=== PATIENT | female | born 1980 | race Caucasian/White ===

== ENCOUNTER 2017-01-30 20:49 | Emergency (ER) | payer OTHER ==
[~2017-01-30] VITALS: Ht 157.5 cm; Wt 55.9 kg
[2017-01-30 20:55] VITALS: TEMP 36.6; Ht 157.5 cm; Wt 55.9 kg
[2017-01-30] MEDS ORDERED: ALBUT/IPRATROP 3MG/0.5MG NEB 3 ML VIAL INH STA (21:04)
[2017-01-30] MEDS ORDERED: DiphenhydrAMINE HCL 50 MG/ML VIAL IV STA (21:04)
[2017-01-30] MEDS ORDERED: FAMOTIDINE 20MG/102 ML D5W IV STA (21:04)
[2017-01-30] MEDS ORDERED: METHYLPREDNISOLONE 125 MG VIAL IV STA (21:04)
[2017-01-30] MEDS ORDERED: vitamin b PO (22:09)
[2017-01-30 22:56] VITALS: BP 107/68
[2017-01-30] MEDS ORDERED: PRED20TA PO (23:09)
[2017-01-30 23:14] VITALS: PULSE 85; O2SAT 97
--- NOTE | 2017-01-31 01:22 | EMERGENCY ROOM VISIT NOTE ---
History Report prepared by [place]: Katie Snowden Under the Supervision of: Dr. Alvin Brewer M.D. First contact with patient: 20:59 Chief Complaint: ALLERGIC REACTION Stated Complaint: ALLERGIC REACTION TO MUSHROOMS History of Present Illness The patient is a 37 year old female who presents to the Emergency Room with complaints of an episode of an allergic reaction beginning 1 hour [employer]. The patient has a known allergy to mushrooms. She was eating a salad tonight and did not know that there were mushrooms in it. She ingested some of the mushrooms around 8pm. Since then she has developed tightness in throat and states that her face is flushed. She has had a similar reaction to mushrooms in the past. The patient denies any trouble breathing or shortness of breath. She has a history of asthma and has been using her inhaler, but states that it is not alleviating her sensations of tightness in her throat. She was feeling fine before eating the salad this evening. The patient denies any chance of . She denies hives. Source of History: patient Onset: 1 hour [employer] Position: other (global) Quality: other (allergic reaction) Timing: other (episode) Modifying Factors (Worsening): eating (mushrooms) Associated Symptoms: No SOB, No rash Note: Pt reports tightness in her throat. Review of Systems See HPI for pertinent positives & negatives. A total of 10 systems reviewed and were otherwise negative. Past Medical & Surgical Medical Problems: (1) Asthma Family History No pertinent history stated. Social History Smoking Status: Current Every Day Smoker Current/Historical Medications Scheduled Divalproex Sodium (Depakote Er), 500 MG PO QAM Divalproex Sodium (Depakote Etended-Release), 1,000 MG PO HS Magnesium Oxide (Mag-Ox), 400 MG PO DAILY Prednisone (Prednisone), 3 TAB PO DAILY [vitamin b], 1 DROP PO DAILY Allergies Coded Allergies: Penicillins (Unverified Allergy, Unknown, anaphylaxis, 01/30/17) Physical Exam Vital Signs Date Time Temp Pulse Resp B/P Pulse Ox O2 Delivery O2 Flow Rate FiO2 01/30/17 23:14 85 16 97 Room Air 01/30/17 22:56 90 22 107/68 99 Room Air 01/30/17 21:42 105 18 100 Room Air 01/30/17 21:42 100 Room Air 01/30/17 21:41 93 01/30/17 20:55 36.6 107 18 123/90 95 Room Air Physical Exam Constitutional: Vital signs reviewed. Eyes: Pupils are equal round reactive to light. Conjunctiva are noninjected. ENT: Pharynx is clear without erythema or exudate. Mucous membranes are moist. No swelling to the tongue or uvula. Neck supple without meningeal signs. Respiratory: Clear to auscultation bilaterally. Breath sounds are equal bilaterally. No wheezing or stridor. Cardiovascular: Regular rate and rhythm. No rubs or gallops. GI: Soft, nondistended and nontender. Bowel sounds are present. Musculoskeletal: No peripheral edema. Integumentary: No cyanosis. No hives, just mild facial flushing. Neurological: The patient is awake and alert. No focal deficits. Psychiatric: Normal affect. Medical Decision & Procedures Medications Administered Medications (Trade) Dose Ordered Sig/Jack Route Start Time Stop Time Status Last Admin Dose Admin Albuterol/ Ipratropium (Duoneb) 3 ml NOW STAT INH 01/30/17 21:04 01/30/17 21:06 DC 01/30/17 21:37 3 ML Methylprednisolone Sodium Succinate (Solu-Medrol IV) 125 mg NOW STAT IV 01/30/17 21:04 01/30/17 21:06 DC 01/30/17 21:38 125 MG Diphenhydramine HCl (Benadryl Inj) 50 mg NOW STAT IV 01/30/17 21:04 01/30/17 21:06 DC 01/30/17 21:39 50 MG Famotidine (Pepcid 20mg/100 ml) 20 mg ONE STAT IV 01/30/17 21:04 01/30/17 21:06 DC 01/30/17 21:38 20 MG ED Course 2058: The patient was evaluated in room B4B. A complete history and physical exam was performed. 2103: Famotidine 20 mg IV, Benadryl 50 mg IV, Solu-Medrol 125 mg IV, Duoneb 3 ml INH 2214: I reassessed the patient. Her breathing is better and she no longer has a tight feeling in her throat. She is starting to develop hives on her arms. 2302: I reassessed the patient at this time. She is feeling better and resting comfortably. She no longer has any shortness of breath or tightness in her throat. She does have some itching and hives on her hands. I discussed the results and treatment plan with the patient. I answered all pertaining questions that she had. She expressed understanding and verbalized agreement. The patient will be discharged home. Medical Decision This is a 37-year-old female presents with allergic reaction. I did perform a limited focused review of portions of the patient's old chart on the electronic medical record. The patient has had no recent pertinent visits to this hospital. I did evaluate the patient as noted above. IV access was established. The patient was placed on a continuous director of cardiac rehabilitation. I did treat patient with IV Solu-Medrol, Pepcid and Benadryl. She was also given a DuoNeb. She was observed in the emergency department. She did have improvement of her symptoms although develop some hives on her hands. She does have a history of eczema. She did feel better and felt ready for discharge. Her lungs were clear to auscultation. She had no swelling to her tongue or uvula. She was advised to continue using antihistamines. She was discharged with a prescription for prednisone. Impression Primary Impression: Allergic reaction Scribe Attestation The scribe's documentation has been prepared under my direct and personally reviewed by me in its entirety. I confirm that the note above accurately reflects all work, treatment, procedures, and medical decision making performed by me. Departure Information Dispostion Home / Self-Care Prescriptions Prednisone (Prednisone) 20 Mg Tab 3 TAB PO DAILY, #12 TAB FOR 4 DAYS Prov: Alvin Brewer M.D. 01/30/17 Referrals Estella Streeter D.O. (PCP) Forms HOME CARE DOCUMENTATION FORM, IMPORTANT VISIT INFORMATION, Work Instructions Patient Instructions ED Allergic React Food, My [facility] Additional Instructions You have been examined and treated today on an emergency basis only. This is not a substitute for, or an effort to provide, complete comprehensive medical care. It is impossible to recognize and treat all injuries or illnesses in a single emergency department visit. It is therefore important that you follow up closely with your physician. Call as soon as possible for an appointment. Return for worsening symptoms or if you develop difficulty breathing, swelling to your tongue or any other concerning symptoms. Problem Qualifiers Primary Impression: Allergic reaction Encounter type: initial encounter Qualified Codes: T78.40XA - Allergy, unspecified, initial encounter
[2017-05-07] MEDS ORDERED: CYAN500S PO (18:14)
[2017-05-07] MEDS ORDERED: NAPR1TAB9 PO (18:15)
[2017-05-07] MEDS ORDERED: SUMA100T16 PO (18:18)
== END 2017-01-30 23:28 | disposition home or self-care (01) ==
LOC: C.EDB 20:52
DX: T78.40XA Allergy, unspecified, initial encounter (principal); X58.XXXA Exposure to other specified factors, initial encounter; F17.200 Nicotine dependence, unspecified, uncomplicated; J45.909 Unspecified asthma, uncomplicated

== ENCOUNTER 2017-03-22 17:47 | Emergency (ER) | payer OTHER ==
[~2017-03-22] VITALS: Ht 157.5 cm; Wt 53.2 kg
[~2017-03-22 17:47] MED LIST: PRED20TA PO; vitamin b PO
[2017-03-22 17:53] VITALS: TEMP 36.7; Ht 157.5 cm; Wt 53.2 kg
[2017-03-22] MEDS ORDERED: HYDR1OIN11 TOP (18:16)
[2017-03-22] MEDS ORDERED: PRED50TA PO (18:49)
--- NOTE | 2017-03-22 18:49 | EMERGENCY ROOM VISIT NOTE ---
ED Visit Note First contact with patient: 18:13 CHIEF COMPLAINT: Burning left arm skin rash since last evening HISTORY OF PRESENT ILLNESS: Patient is a [id number] 37-year-old white female who presents to the emergency department for evaluation of a rash on her left hand. 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 She does not know if the restaurant changed sanitizers or increased to be concentration last evening. She does not wear gloves. She states that she noticed some swelling and soreness in the back of her left hand in her fingers last night as she left for work. She states that normally after doing a lot of dishwashing the hand becomes swollen, so she did not think much of it, but throughout the night and when she woke up today, she noted redness, warmth and swelling spreading up the dorsum of the left hand to the mid forearm, and on the ulnar aspect of the forearm to the elbow. She describes it as a tight, burning sensation. She took Aleve and applied a hydrocortisone cream to the area, but it was ineffective. She did work almost her entire shift as a software systems engineer today. She rates her discomfort an 8/10. She does not have any symptoms on the right hand. She denies any fever, chills, sweats, drainage or discharge from the area. She is never had symptoms similar to this previously. REVIEW OF SYSTEMS: Review of systems as per HPI. All other systems reviewed were negative. At least 6 systems reviewed. PMH: Electronic medical records are reviewed and summarized as above/below. See Problem List. SOCIAL HISTORY: Patient lives at home by herself. She does smoke, denies alcohol use.. PHYSICAL EXAM: Vital Signs: See nurses' notes. CONSTITUTIONAL: Patient is a well-appearing 37-year-old white female who is awake and alert and in no acute distress. INTEGUMENTARY: Examination of the left arm show a slightly raised, warm erythematous rash, involving the dorsum of the hand extending to the mid forearm, and wrapping around to the volar aspect of the forearm, sparing the palm and the fingers. No blistering, skin sloughing, vesicles or petechiae are noted. There is no lymphangitic streaking. Capillary refills less than 2 seconds. Sensation light touch is intact. ED course: The patient was seen and assessed as above. She does appear to have a rash consistent with a contact dermatitis on her left hand. It spares her fingers and the palm. Skin is otherwise intact. There is no blistering to indicate a burn. I do not suspect cellulitis. The patient was given prednisone 60 mg orally in the emergency department. She will be placed on a short course of oral prednisone. She is encouraged to protect the area when she returns to work and to wear gloves. I cannot say whether this is related to her exposure at work or not. It seems unusual that it would only involve the left arm as both arms were actively involved in doing dishes and equally exposed to the same cleaning agents. Problem List Medical Problems: (1) Allergic reaction Status: Resolved (2) Asthma Status: Chronic Surgical Problems: (1) H/O section Status: Resolved Current/Historical Medications Scheduled Cyanocobalamin (B-12 Dots), 1,000 MCG PO DAILY Divalproex Sodium (Depakote Er), 500 MG PO QAM Divalproex Sodium (Depakote Etended-Release), 1,000 MG PO HS Hydrocortisone (Topical) (Cortizone-10), 1 APPLN TOP TID Magnesium Oxide (Mag-Ox), 400 MG PO DAILY Naproxen (Aleve), 220 MG PO DAILY Prednisone (Prednisone), 50 MG PO DAILY Scheduled PRN Sumatriptan Succinate (Imitrex), 500 MG PO PRN PRN for Migraine Allergies Coded Allergies: Mushroom (Unverified Allergy, Severe, ANAPHYLAXIS, 03/22/17) Penicillins (Unverified Allergy, Unknown, anaphylaxis, 03/22/17) Uncoded Allergies: VENISON (Allergy, Severe, ANAPHYLAXIS, 03/22/17) Vital Signs Date Time Temp Pulse Resp B/P Pulse Ox O2 Delivery O2 Flow Rate FiO2 03/22/17 19:02 99 18 114/78 99 03/22/17 17:53 36.7 82 16 125/76 97 Room Air Medications Administered Medications (Trade) Dose Ordered Sig/Jack Route Start Time Stop Time Status Last Admin Dose Admin Prednisone (PredniSONE TAB) 60 mg NOW STAT PO 03/22/17 18:37 03/22/17 18:38 DC 03/22/17 18:50 60 MG Departure Information Impression Primary Impression: Contact dermatitis Prescriptions Prednisone (Prednisone) 50 Mg Tab 50 MG PO DAILY for 4 Days, #4 TAB Prov: Felicity Livingston PA 03/22/17 Referrals No Doctor, Assigned (PCP) Patient Instructions My [facility] Additional Instructions Prednisone 50mg: Once daily until the prescription is finished. It is best to take this earlier in the day as some patients note occasional difficulty falling asleep when taken in the late evening. Diphenhydramine(Benadryl) 25mg: use 25 to 50 mg as needed every six hours for swelling, itching, or hives. This medication is sedating and will cause drowsiness. Avoid alcohol, operating machinery or dangerous equipment, working on ladders or roofs, DRIVING, or situations where being under the influence may be dangerous. Zantac 75: Take two pills twice a day along with Benadryl as needed for swelling , itching, or hives. Most people know this for its affect on the stomach, but it also acts similar to, but less potent than Benadryl for allergic reactions. Both the Benadryl and the Zantac are available [id number]. Elevate the arm and apply cool compresses as needed for pain and swelling. Continue current medications. Return to the emergency department for worsening of your rash, fevers, vomiting , worsening symptoms or as needed. Follow-up with your primary care physician in 2-3 days for a recheck of your current condition.
[2017-03-22 19:02] VITALS: BP 114/78; PULSE 99; O2SAT 99
[2017-05-07] MEDS ORDERED: CYAN500S PO (18:14)
[2017-05-07] MEDS ORDERED: NAPR1TAB9 PO (18:15)
[2017-05-07] MEDS ORDERED: SUMA100T16 PO (18:18)
== END 2017-03-22 19:04 | disposition home or self-care (01) ==
LOC: C.EDB 17:48 → C.EDD 19:04
DX: L25.9 Unspecified contact dermatitis, unspecified cause (principal); J45.909 Unspecified asthma, uncomplicated; Z79.899 Other long term (current) drug therapy

== ENCOUNTER 2017-05-07 21:24 | Emergency (ER) | payer OTHER ==
[~2017-05-07] VITALS: Ht 157.5 cm; Wt 51.8 kg
[~2017-05-07 21:24] MED LIST changes: +CYAN500S PO; +HYDR1OIN11 TOP; +NAPR1TAB9 PO; -PRED20TA PO; +SUMA100T16 PO; -vitamin b PO
[2017-05-07 21:32] VITALS: TEMP 36.6; Ht 157.5 cm; Wt 51.8 kg
[2017-05-07] MEDS ORDERED: DPKSR/500 PO (22:09)
[2017-05-07] MEDS ORDERED: MAGN400T6 PO (22:09)
[2017-05-07] MEDS ORDERED: DIVA500T3 PO (22:09)
--- NOTE | 2017-05-07 22:40 | DIAGNOSTIC IMAGING REPORT ---
CHEST 2 VIEWS ROUTINE CLINICAL HISTORY: Productive cough COMPARISON STUDY: No previous studies for comparison. FINDINGS: The cardiac and mediastinal contours are normal. There is no evidence of focal pulmonary consolidation. There is no evidence of failure. No pleural effusions are visualized.[ IMPRESSION: No active disease in the chest. Electronically signed by: Chapin Mcclain M.D. 05/07/2017 10:38 PM Dictated Date/Time: 05/07/2017 10:38 PM
[2017-05-07] MEDS ORDERED: DOXYCYCLINE HYCLATE 100 MG CAP PO STA (23:03)
[2017-05-07] MEDS ORDERED: DOXY-300 PO (23:05)
--- NOTE | 2017-05-07 23:06 | EMERGENCY ROOM VISIT NOTE ---
History First contact with patient: 21:45 Chief Complaint: SINUS CONGESTION/PRESSURE Stated Complaint: SINUS INFECTION FOR 2 WEEKS Nursing Triage Summary: Sinus infection for several weeks. Denies being seen by PCP. Pt taking Benadryl and Ibuprofen with no relief. Congestion, coughing up "green shit and blowing gree stuff out of nose" History of Present Illness The patient is a 37 year old female who presents to the Emergency Room via private vehicle accompanied by female with complaints of "sinus infection for 2 weeks". The patient states that she has had sinus pressure around her nose for the past 3 weeks, and also has been passing green drainage from her nose as well as coughing up green phlegm. She has had chest congestion with cough for about 3 weeks as well. She notes that she had sinus surgery age 21, and her father from a sinus infection. She's been working a lot and has not been able to tend to her sinus congestion. She denies any sore throat, or chills. She believes that she may have an associated fever. Review of Systems A complete 6-point Review of Systems was discussed with the patient, with pertinent positives and negatives listed in the History of Present Illness. All remaining Review of Systems questions can be considered negative unless otherwise specified. Past Medical/Surgical History Medical Problems: (1) Allergic reaction (2) Asthma Surgical Problems: (1) H/O section Family History Previous sinus infection Social History Smoking Status: Current Every Day Smoker Current/Historical Medications Scheduled Cyanocobalamin (B-12 Dots), 1,000 MCG PO DAILY Divalproex Sodium (Depakote Er), 500 MG PO QAM Divalproex Sodium (Depakote Etended-Release), 1,000 MG PO HS Doxycycline (Monohydrate) (Doxycycline), 100 MG PO BID Magnesium Oxide (Mag-Ox), 400 MG PO DAILY Naproxen (Aleve), 220 MG PO DAILY Scheduled PRN Hydrocortisone (Topical) (Cortizone-10), 1 APPLN TOP TID PRN for Itching Sumatriptan Succinate (Imitrex), 500 MG PO PRN PRN for Migraine Allergies Coded Allergies: Mushroom (Unverified Allergy, Severe, ANAPHYLAXIS, 03/22/17) Penicillins (Unverified Allergy, Unknown, anaphylaxis, 03/22/17) Uncoded Allergies: VENISON (Allergy, Severe, ANAPHYLAXIS, 03/22/17) Physical Exam Vital Signs Date Time Temp Pulse Resp B/P (MAP) Pulse Ox O2 Delivery O2 Flow Rate FiO2 05/07/17 23:20 65 18 104/69 99 05/07/17 21:35 97 Room Air 05/07/17 21:32 36.6 88 18 122/76 97 Room Air Physical Exam VITAL SIGNS - Vital signs and nursing notes were reviewed. Patient is afebrile , normotensive at 122/76, non-tachycardic and saturating well on room air at 97% . GENERAL -37-year-old female appearing her stated age who is in no acute distress. Communicates well with provider and answers questions appropriately. SKIN - Without rashes. No petechial rashes. HEAD - NC/AT. EYES - PERRL with EOMI bilaterally. Sclera anicteric. Palpebral conjunctiva pink and moist with no injection noted. EARS - No deformities of external structures noted on gross examination bilaterally. No pain elicited with palpation of the tragus bilaterally. External auditory canals without discharge or otorrhea. Tympanic membranes pearly acharya without retraction or bulging. No fluid or purulent material visualized behind the TM. Handle of malleus, umbo, cone of light, pars tensa/ flaccid all easily visualized. NOSE - Midline and without cyanosis. No epistaxis or purulent drainage noted. Septum midline without deviation or septal hematoma noted. There is facial tenderness to palpation overlying the maxillary sinuses. MOUTH/OROPHARYNX - Without perioral cyanosis. Buccal mucosa pink and moist and without leukoplakia. Tongue midline with equal elevation of palate bilaterally. No tonsillar hypertrophy, erythema, or exudates noted. Fair dentition. NECK - Neck with FROM. Supple to palpation. No lymphadenopathy noted. No nuchal rigidity. No meningismus. LUNGS - Chest wall symmetric without accessory muscle use, intercostals retractions, or central cyanosis. Normal vesicular breath sounds CTA B/L. No wheezes, rales, or rhonchi appreciated. CARDIAC - RRR with S1/S2. No murmur, rubs, or gallops appreciated. Medical Decision & Procedures ER Provider Diagnostic Interpretation: CHEST 2 VIEWS ROUTINE CLINICAL HISTORY: Productive cough COMPARISON STUDY: No previous studies for comparison. FINDINGS: The cardiac and mediastinal contours are normal. There is no evidence of focal pulmonary consolidation. There is no evidence of failure. No pleural effusions are visualized.[ IMPRESSION: No active disease in the chest. Electronically signed by: Chapin Mcclain M.D. 05/07/2017 10:38 PM Dictated Date/Time: 05/07/2017 10:38 PM Medications Administered Medications (Trade) Dose Ordered Sig/Jack Route Start Time Stop Time Status Last Admin Dose Admin Doxycycline Hyclate (Vibramycin Cap) 100 mg ONE STAT PO 05/07/17 23:03 05/07/17 23:04 DC 05/07/17 23:19 100 MG Medical Decision Patient was seen and evaluated as above. After obtaining a thorough history and physical examination benefit versus risk of obtaining a sinus CT scan as well as a chest x-ray were discussed. Decision was made to hold off from the CT scan but obtaining the chest x-ray. Results as above. At this time I suspect the patient is likely experiencing acute sinusitis, due to's duration will treat with an antibiotic. She is penicillin allergic, therefore a quick query of the up-to-date medicine recommendation states that doxycycline may be used first line in penicillin allergic individuals. This will be provided for 7 days. She was given the first dose here with remainder sent to the pharmacy. She was educated upon the importance of follow-up with her family doctor and to return here if worsening. She was educated upon worrisome symptoms which to return, had questions as per discharge, and were discharged home in good condition. X-ray negative for acute process. In evaluation treatment this patient following differential diagnoses were entertained: Acute bacterial rhinosinusitis, bronchitis, pneumonia, among others. Impression Primary Impression: Sinusitis Departure Information Dispostion Home / Self-Care Condition GOOD Prescriptions Doxycycline (Monohydrate) (Doxycycline) 100 Mg Cap 100 MG PO BID, #13 TABS Prov: Noe Srivastava PA-C 05/07/17 Referrals No Doctor, Assigned (PCP) Patient Instructions My [facility] Additional Instructions You were seen in the emergency department for your mucus drainage and sinus infection. You have been prescribed Doxycycline to be taken as prescribed. This is an antibiotic. All antibiotics have the potential to cause diarrhea. Stop this medication and contact a medical provider if you were to develop any significant adverse side effects including: wheezing, shortness of breath, passing out, vomiting, or a diffuse rash. Always take antibiotics as directed and COMPLETE the ENTIRE course regardless of the improvement of your symptoms. Protect yourself with sunscreen while on this antibiotic as it increases your skin's sensitivity to the light and cause bad sunburns. In addition, you should be sure to take this pill after eating. Make sure the pill is completely swallowed as this medication can cause irritation to the lining of the esophagus. Do NOT drink milk or eat anything with large amounts of Calcium in them 1 hour prior to taking this medication as this will decrease the effectiveness of the medication. For pain and fever control, you can use the following kqcl-[id number] medicines (if >12 yo): - Regular strength (325mg/tab) Tylenol (acetaminophen) 2 tabs every 4-6 hours as needed. Do not exceed 12 tablets in a 24 hour period. Avoid taking more than 3 grams (3000 mg) of Tylenol per day. This includes any other sources of acetaminophen you may take on a regular basis. - Regular strength (200 mg/tab) Advil (ibuprofen) 1-2 tabs every 4-6 hours as needed. Do not exceed a dose of 3200 mg per day. - For best results, alternate dosing of Tylenol and Advil. you may use [id number] decongestants such as guaifenesin. Follow up with your primary care provider in 2-3 days from today's emergency department visit. Please return to the emergency department with any new/concerning symptoms.
[2017-05-07 23:20] VITALS: BP 104/69; PULSE 65; O2SAT 99
== END 2017-05-07 23:19 | disposition home or self-care (01) ==
LOC: C.EDB 21:25 → C.EDD 23:19
DX: J32.9 Chronic sinusitis, unspecified (principal); J45.909 Unspecified asthma, uncomplicated; F17.210 Nicotine dependence, cigarettes, uncomplicated; Z79.899 Other long term (current) drug therapy

== ENCOUNTER 2017-08-09 15:10 | Emergency (ER) | payer OTHER ==
[~2017-08-09] VITALS: Ht 157.5 cm; Wt 53.8 kg
[~2017-08-09 15:10] MED LIST changes: +DIVA500T3 PO; +DOXY-300 PO; +DPKSR/500 PO; +MAGN400T6 PO
[2017-08-09 15:24] VITALS: TEMP 36.8; Ht 157.5 cm; Wt 53.8 kg
[2017-08-09] MEDS ORDERED: XYLOCAINE 1%/SOD BICARB 20 ML VIAL INFIL ONE (15:45)
[2017-08-09] MEDS ORDERED: DOXY100C76 PO (16:20)
[2017-08-09 16:21] VITALS: BP 119/74; PULSE 73; O2SAT 100
--- NOTE | 2017-08-09 16:23 | EMERGENCY ROOM VISIT NOTE ---
History First contact with patient: 15:28 Chief Complaint: LACERATION/CUT (NON-SUTURE) Stated Complaint: SLICED LF RING FINGER,WC Nursing Triage Summary: Laceration to left ring finger today while at work. Glass bowl shattered in hand. History of Present Illness The patient is a 37 year old female who presents to the Emergency Room with complaints of a laceration to her left ring finger. The patient reports that the injury happened at work while attempting to move a stack of glass bowls and one of them broke and cut her finger. The patient reports significant bleeding from the wound. She rates her discomfort a 6 out of 10. Tetanus immunization is up-to-date, and the patient is [id number]. Review of Systems 6 system review was performed and was negative except for pertinent positives and negatives as indicated in history of present illness Past Medical/Surgical History Medical Problems: (1) Allergic reaction (2) Asthma Surgical Problems: (1) H/O section Family History Unremarkable Social History Smoking Status: Current Every Day Smoker Alcohol Use: occasionally Marital Status: Housing Status: lives with family Occupation Status: employed Current/Historical Medications Scheduled Cyanocobalamin (B-12 Dots), 1,000 MCG PO DAILY Divalproex Sodium (Depakote Er), 500 MG PO QAM Divalproex Sodium (Depakote Etended-Release), 1,000 MG PO HS Doxycycline (Monohydrate) (Doxycycline), 100 MG PO BID Magnesium Oxide (Mag-Ox), 400 MG PO DAILY Naproxen (Aleve), 220 MG PO DAILY Scheduled PRN Hydrocortisone (Topical) (Cortizone-10), 1 APPLN TOP TID PRN for Itching Sumatriptan Succinate (Imitrex), 500 MG PO PRN PRN for Migraine Physical Exam Vital Signs Date Time Temp Pulse Resp B/P (MAP) Pulse Ox O2 Delivery O2 Flow Rate FiO2 08/09/17 15:24 36.8 73 17 119/74 100 Room Air Physical Exam CONSTITUTIONAL: Healthy and well nourished. Alert and oriented X 3 with positive affect. HEENT: Normocephalic, atraumatic. Pupils equal, round and reactive. MUSCULOSKELETAL: Examination of the left ring finger shows a small 0.75 cm flap laceration without active bleeding on exam. There is no involvement of the nail plate. The refill of the fingertip is less than 2 seconds. INTEGUMENTARY: No rash or other significant dermatologic conditions noted. NEUROLOGIC: No focal neurologic deficits noted. Medical Decision & Procedures Procedure Left fourth fingertip laceration repair was performed under digital block anesthesia. Using buffered 1% lidocaine without epinephrine, good digital block anesthesia was administered. The peripheral tissue was enclosed with iodine, then the wound was irrigated with normal saline prior to closure using 5 -0 nylon simple interrupted sutures 3. Bacitracin Band-Aid was applied. The patient tolerated the procedure well. ED Course Patient history and physical exam were performed. Nurse's notes were reviewed. Vital signs were reviewed and were normal. Laceration repair was performed under digital block anesthesia. The patient was provided additional verbal and written wound care instructions. Ice and elevation for swelling. Ibuprofen or Tylenol as needed for additional pain relief. Suture removal in 12-14 days, or seek reevaluation sooner for any signs of wound infection. The patient was happy with plan of care, voiced understanding of all discharge instructions, and denied any pain at the time of discharge. Medical Decision Medication Reconcilliation Current Medication List: was personally reviewed by me Blood Pressure Screening Patient's blood pressure: Normal blood pressure Impression Primary Impression: Laceration of left ring finger Additional Impression: Work related injury Departure Information Dispostion Home / Self-Care Forms HOME CARE DOCUMENTATION FORM, IMPORTANT VISIT INFORMATION Patient Instructions [facility] Additional Instructions Keep wound clean and dry. Do not allow any crusting or dried blood to accumulate on sutures. If this occurs, use a 1:1 solution of hydrogen peroxide/ water on a Q-tip to clean the wound. Use an antibiotic ointment for 3-4 days, then let wound dry. Suture removal in 12-14 days. Return sooner for any signs of infection (increasing redness, swelling, drainage). Ice and elevate for swelling and pain. Ibuprofen 600 mg and/or Tylenol 1000 mg every 6 hrs as needed for pain. Problem Qualifiers Primary Impression: Laceration of left ring finger Encounter type: initial encounter Damage to nail status: without damage Foreign body presence: without foreign body Qualified Codes: S61.215A - Laceration without foreign body of left ring finger without damage to nail, initial encounter
== END 2017-08-09 16:22 | disposition home or self-care (01) ==
LOC: C.EDB 15:11 → C.EDD 16:22
DX: S61.215A Laceration without foreign body of left ring finger without damage to nail, initial encounter (principal); W45.8XXA Other foreign body or object entering through skin, initial encounter; Y92.89 Other specified places as the place of occurrence of the external cause; Y99.0 Civilian activity done for income or pay; J45.909 Unspecified asthma, uncomplicated; F17.200 Nicotine dependence, unspecified, uncomplicated; Z79.899 Other long term (current) drug therapy

== ENCOUNTER 2017-08-18 13:53 | Emergency (ER) | payer OTHER ==
[~2017-08-18] VITALS: Ht 162.6 cm; Wt 51.7 kg
[~2017-08-18 13:53] MED LIST changes: -DOXY-300 PO; +DOXY100C76 PO
[2017-08-18 14:10] VITALS: BP 117/76; PULSE 104; TEMP 36.4; O2SAT 98; Ht 162.6 cm; Wt 51.7 kg
--- NOTE | 2017-08-18 14:39 | EMERGENCY ROOM VISIT NOTE ---
History First contact with patient: 14:17 Chief Complaint: SUTURE/STAPLE REMOVAL Stated Complaint: STITCHES REMOVAL Nursing Triage Summary: here for suture removal of left ring finger History of Present Illness The patient is a 37 year old female who presents to the Emergency Room for suture removal from a left ring finger laceration that was repaired by me 9 days ago. The patient denies any wound complications. Review of Systems Noncontributory Past Medical/Surgical History Medical Problems: (1) Allergic reaction (2) Asthma Surgical Problems: (1) H/O section Social History Smoking Status: Current Every Day Smoker Alcohol Use: occasionally Marital Status: Housing Status: lives with family Occupation Status: employed Current/Historical Medications Scheduled Cyanocobalamin (B-12 Dots), 1,000 MCG PO DAILY Divalproex Sodium (Depakote Er), 500 MG PO QAM Divalproex Sodium (Depakote Etended-Release), 1,000 MG PO HS Doxycycline Monohydrate (Monodox), 100 MG PO BID Magnesium Oxide (Mag-Ox), 400 MG PO DAILY Naproxen (Aleve), 220 MG PO DAILY Scheduled PRN Hydrocortisone (Topical) (Cortizone-10), 1 APPLN TOP TID PRN for Itching Sumatriptan Succinate (Imitrex), 500 MG PO PRN PRN for Migraine Physical Exam Vital Signs Date Time Temp Pulse Resp B/P (MAP) Pulse Ox O2 Delivery O2 Flow Rate FiO2 08/18/17 14:10 36.4 104 16 117/76 98 Room Air Physical Exam MUSCULOSKELETAL: Examination of the left ring finger digital pad shows a well- healed laceration without any erythema, drainage or induration. All sutures were removed without complication. Medical Decision & Procedures ED Course The patient was provided additional verbal wound care instructions. Watch for any signs of developing infection, and avoid any undue stress on the wound until it further heals. The patient was happy with plan of care, and denied any pain at the time of discharge. Medical Decision Impression Primary Impression: Encounter for removal of sutures Additional Impression: Laceration of left ring finger Departure Information Dispostion Home / Self-Care Forms HOME CARE DOCUMENTATION FORM, IMPORTANT VISIT INFORMATION Patient Instructions [employer] Additional Instructions May return to work without restrictions Problem Qualifiers Additional Impression: Laceration of left ring finger Encounter type: subsequent encounter Damage to nail status: without damage Foreign body presence: without foreign body Qualified Codes: S61.215D - Laceration without foreign body of left ring finger without damage to nail, subsequent encounter
== END 2017-08-18 14:52 | disposition home or self-care (01) ==
LOC: C.EDB 13:54 → C.EDD 14:52
DX: S61.215D Laceration without foreign body of left ring finger without damage to nail, subsequent encounter (principal); X58.XXXD Exposure to other specified factors, subsequent encounter; J45.909 Unspecified asthma, uncomplicated; F17.210 Nicotine dependence, cigarettes, uncomplicated; Z79.899 Other long term (current) drug therapy

== ENCOUNTER 2017-12-01 21:07 | Emergency (ER) | payer OTHER ==
[~2017-12-01] VITALS: Ht 157.5 cm; Wt 51.5 kg
[~2017-12-01 21:07] MED LIST changes: -CYAN500S PO; -DOXY100C76 PO; -HYDR1OIN11 TOP; -MAGN400T6 PO; -NAPR1TAB9 PO
[2017-12-01 21:10] VITALS: TEMP 36.6; Ht 157.5 cm; Wt 51.5 kg
[2017-12-01] MEDS ORDERED: SODIUM CHLORIDE 0.9% 1000ML 1,000 ML IV STA (21:21)
[2017-12-01] MEDS ORDERED: ACETAMINOPHEN 325 MG TAB PO STA (21:21)
[2017-12-01] MEDS: LOPERAMIDE HCL 2 MG CAP PO STA ×2 (21:21→22:46)
[2017-12-01] MEDS ORDERED: KETOROLAC TROMETHAMINE 30 MG/ML VIAL IV STA (21:21)
[2017-12-01] MEDS ORDERED: ONDANSETRON INJ 2 MG/ML 2 ML VIAL IV STA (21:21)
--- NOTE | 2017-12-01 21:40 | EMERGENCY ROOM VISIT NOTE ---
History Report prepared by [place]: Heather Breaux Under the Supervision of: Dr. Ebenezer Garzon M.D. First contact with patient: 21:16 Chief Complaint: NAUSEA Stated Complaint: CAN'T KEEP ANYTHING DOWN History of Present Illness The patient is a 37 year old female who presents to the Emergency Room with complaints of persistent nausea and diarrhea that started about 7 hours ago. The patient rates her pain a 10/10 in severity. The patient states she has been having lower abdominal pain. She notes this pain feels like "cramping". She notes "it feels like someone keeps punching me in the stomach". She denies any blood in her vomit or stool. She also denies any urine symptoms. She thinks she had a fever earlier today but she took Aleve and it seemed to bring her temperature down. Source of History: patient Onset: 7 hours ago Position: other (global) Symptom Intensity: 10/10 Quality: cramping Timing: other (persistent) Associated Symptoms: + fevers, + abdominal pain, No urinary symptoms Note: Additional symptoms: No blood in vomit or stool. Review of Systems See HPI for pertinent positives & negatives. A total of 10 systems reviewed and were otherwise negative. Past Medical & Surgical Medical Problems: (1) Allergic reaction (2) Asthma Surgical Problems: (1) H/O section Family History No pertinent family history Social History Smoking Status: Current Some Day Smoker Alcohol Use: occasionally Marital Status: Housing Status: lives with family Occupation Status: employed Current/Historical Medications Scheduled Cyanocobalamin (Vitamin B-12), Unknown Dose PO DAILY Gabapentin (Neurontin), 800 MG PO QAM Gabapentin (Neurontin), 1,600 MG PO QPM Magnesium Oxide (Mag-Ox), 400 MG PO QPM Ondasetron Odt (Zofran Odt), 4 MG SL Q6H Scheduled PRN Sumatriptan Succinate (Imitrex), 500 MG PO PRN PRN for Migraine Allergies Coded Allergies: Mushroom (Unverified Allergy, Severe, ANAPHYLAXIS, 08/18/17) Penicillins (Unverified Allergy, Unknown, anaphylaxis, 08/18/17) Vitamin B12 (Unverified Allergy, Unknown, ., 08/18/17) Uncoded Allergies: VENISON (Allergy, Severe, ANAPHYLAXIS, 03/22/17) Physical Exam Vital Signs Date Time Temp Pulse Resp B/P (MAP) Pulse Ox O2 Delivery O2 Flow Rate FiO2 12/01/17 21:10 36.6 76 18 139/80 96 Room Air Physical Exam GENERAL: Patient is in no acute distress. HEENT: No acute trauma, normocephalic atraumatic, mucous membranes moist, no nasal congestion, no scleral icterus. NECK: No stridor, no adenopathy, no meningismus, trachea is midline. LUNGS: Clear to auscultation bilaterally, no wheeze, no rhonchi, breath sounds equal. HEART: Without murmurs gallops or rubs, regular rate and rhythm. ABDOMEN: Soft, mildly diffusely tender, bowel sounds hyperactive, no hernias, no peritonitis. EXTREMITIES: No cyanosis or edema, full range of motion of all the joints without pain or difficulty, no signs for acute trauma. NEUROLOGIC: Oriented x 3, no acute motor or sensory deficits, no focal weakness. SKIN: No rash, no jaundice, no diaphoresis. Medical Decision & Procedures Laboratory Results 12/01/17 21:35 Red Blood Count 4.34, Mean Corpuscular Volume 96.3, Mean Corpuscular Hemoglobin 33.6, Mean Corpuscular Hemoglobin Concent 34.9, Mean Platelet Volume 11.9, Neutrophils (%) (Auto) 64.8, Lymphocytes (%) (Auto) 23.3, Monocytes (%) (Auto) 9.5, Eosinophils (%) (Auto) 1.1, Basophils (%) (Auto) 1.1, Neutrophils # (Auto) 5.25, Lymphocytes # (Auto) 1.89, Monocytes # (Auto) 0.77, Eosinophils # (Auto) 0.09, Basophils # (Auto) 0.09 12/01/17 21:35 Test 12/01/17 21:35 White Blood Count 8.11 K/uL (4.8-10.8) Red Blood Count 4.34 M/uL (4.2-5.4) Hemoglobin 14.6 g/dL (12.0-16.0) Hematocrit 41.8 % (37-47) Mean Corpuscular Volume 96.3 fL (80-100) Mean Corpuscular Hemoglobin 33.6 pg (25-34) Mean Corpuscular Hemoglobin Concent 34.9 g/dl (32-36) Platelet Count 183 K/uL (130-400) Mean Platelet Volume 11.9 fL (7.4-10.4) Neutrophils (%) (Auto) 64.8 % Lymphocytes (%) (Auto) 23.3 % Monocytes (%) (Auto) 9.5 % Eosinophils (%) (Auto) 1.1 % Basophils (%) (Auto) 1.1 % Neutrophils # (Auto) 5.25 K/uL (1.4-6.5) Lymphocytes # (Auto) 1.89 K/uL (1.2-3.4) Monocytes # (Auto) 0.77 K/uL (0.11-0.59) Eosinophils # (Auto) 0.09 K/uL (0-0.5) Basophils # (Auto) 0.09 K/uL (0-0.2) RDW Standard Deviation 44.9 fL (36.4-46.3) RDW Coefficient of Variation 12.9 % (11.5-14.5) Immature Granulocyte % (Auto) 0.2 % Immature Granulocyte # (Auto) 0.02 K/uL (0.00-0.02) Anion Gap 8.0 mmol/L (3-11) Est Creatinine Clear Calc Drug Dose 98.0 ml/min Estimated GFR () 132.4 Estimated GFR (Non- 114.2 BUN/Creatinine Ratio 28.0 (10-20) Calcium Level 8.8 mg/dl (8.5-10.1) Total Bilirubin 0.3 mg/dl (0.2-1) Aspartate Amino Transf (AST/SGOT) 12 U/L (15-37) Alanine Aminotransferase (ALT/SGPT) 19 U/L (12-78) Alkaline Phosphatase 62 U/L (45-117) Total Protein 7.2 gm/dl (6.4-8.2) Albumin 4.6 gm/dl (3.4-5.0) Globulin 2.6 gm/dl (2.5-4.0) Albumin/Globulin Ratio 1.7 (0.9-2) Lipase 193 U/L (73-393) Human Chorionic Gonadotropin, Qual NEG (NEG) Laboratory results reviewed by me. Medications Administered Medications (Trade) Dose Ordered Sig/Jack Route Start Time Stop Time Status Last Admin Dose Admin Ondansetron HCl (Zofran Inj) 4 mg NOW STAT IV 12/01/17 21:21 12/01/17 21:23 DC 12/01/17 21:40 4 MG Sodium Chloride 1,000 ml @ 999 mls/hr Q1H1M STAT IV 12/01/17 21:21 12/01/17 22:21 DC 12/01/17 21:42 999 MLS/HR Ketorolac Tromethamine (Toradol Inj) 30 mg NOW STAT IV 12/01/17 21:21 12/01/17 21:23 DC 12/01/17 21:41 30 MG Acetaminophen (Tylenol Tab) 650 mg NOW STAT PO 12/01/17 21:21 12/01/17 21:23 DC 12/01/17 21:42 650 MG ED Course 6: The patient was evaluated in room B9. A complete history and physical exam was performed. 1: Tylenol Tab 650 mg PO, Imodium Cap 2 mg PO, Toradol Inj 30 mg IV, Sodium Chloride 1000 ml @ 999 mls/hr IV, Zofran Inj 4 mg IV. 2223: Reevaluated the patient. Discussed results and discharge instructions: She verbalized understanding and agreement. The patient is ready for discharge. 2230: Ondansetron HCI 1 homepack PO. Medical Decision The patient is a 37 year old female who presents to the ED with complaints of nausea. Differential diagnoses considered include viral illness, food born illness, dehydration, electrolyte imbalance, anemia, . There is no leukocytosis or concerning anemia. No significant electrolyte abnormality, kidney failure, hepatitis or pancreatitis. testing was negative. On exam, the patient did not have peritonitis. She was not febrile or toxic. On exam, she did have hyperactive bowel sounds consistent with stomach upset. Patient received IV saline, IV Zofran, IV Toradol, oral Tylenol and oral Imodium. She seems fairly comfortable. I suspect this illness is either food borne or viral. The patient is being discharged with Zofran, Imodium, Tylenol, a bland diet and rest. If she is worsening or not improving, she can return. Medication Reconcilliation Current Medication List: was personally reviewed by me Blood Pressure Screening Patient's blood pressure: Elevated blood pressure Blood pressure disposition: Elevated BP felt to be situational Impression Primary Impression: Nausea, vomiting, and diarrhea Additional Impression: Diffuse abdominal pain Scribe Attestation The scribe's documentation has been prepared under my direction and personally reviewed by me in its entirety. I confirm that the note above accurately reflects all work, treatment, procedures, and medical decision making performed by me. Departure Information Dispostion Home / Self-Care Prescriptions Ondasetron Odt (ZOFRAN ODT) 4 Mg Tab 4 MG SL Q6H for Nausea, #6 TAB Prov: Ebenezer Garzon M.D. 12/01/17 Referrals No Doctor, Assigned (PCP) Patient Instructions My [facility] Additional Instructions zofran 1-2 tab every 6 hours for nausea as needed tylenol for pain may use immodium otc for diarrhea as directed bland diet---crackers, soup, toast, gatorade rest return for worsening symptoms or if not improving Problem Qualifiers
[2017-12-01 21:49] LABS: BASO % 1.1 %; BASO ABS # 0.09 K/uL (0-0.2); EOS % 1.1 %; EOS ABS # 0.09 K/uL (0-0.5); HEMATOCRIT 41.8 % (37-47); HEMOGLOBIN 14.6 g/dL (12.0-16.0); IG# 0.02 K/uL (0.00-0.02); LYMPH % 23.3 %; LYMPH ABS # 1.89 K/uL (1.2-3.4); MEAN CELL VOLUME 96.3 fL (80-100); MEAN CORPUSCULAR HEMOGLOBIN 33.6 pg (25-34); MEAN CORPUSCULAR HGB CONC 34.9 g/dl (32-36); MEAN PLATELET VOLUME 11.9 fL (7.4-10.4); MONO % 9.5 %; MONO ABS # 0.77 K/uL (0.11-0.59); NEUT % 64.8 %; NEUT ABS # 5.25 K/uL (1.4-6.5); PLATELET COUNT 183 K/uL (130-400); RED CELL DISTRIBUTION WIDTH CV 12.9 % (11.5-14.5); RED CELL DISTRIBUTION WIDTH SD 44.9 fL (36.4-46.3); WHITE BLOOD COUNT 8.11 K/uL (4.8-10.8)
[2017-12-01] MEDS ORDERED: GABA800T PO ×2 (22:01→22:02)
[2017-12-01] MEDS ORDERED: MAGN400T6 PO (22:03)
[2017-12-01] MEDS ORDERED: CYAN500T PO (22:03)
[2017-12-01 22:12] LABS: ALBUMIN 4.6 gm/dl (3.4-5.0); CALCIUM 8.8 mg/dl (8.5-10.1); CREATININE 0.61 mg/dl (0.60-1.20); POTASSIUM 3.9 mmol/L (3.5-5.1)
[2017-12-01] MEDS ORDERED: ONDA4TAB10 SL (22:12)
[2017-12-01 22:15] LABS: TOTAL PROTEIN 7.2 gm/dl (6.4-8.2)
[2017-12-01] MEDS ORDERED: ONDANSETRON HOME PACK 4MG OD TAB PO ONE (22:30)
[2017-12-01 22:52] VITALS: BP 108/69; PULSE 69; O2SAT 100
== END 2017-12-01 22:53 | disposition home or self-care (01) ==
LOC: C.EDB 21:08
DX: R11.2 Nausea with vomiting, unspecified (principal); R19.7 Diarrhea, unspecified; R10.9 Unspecified abdominal pain; J45.909 Unspecified asthma, uncomplicated; F17.200 Nicotine dependence, unspecified, uncomplicated; Z79.899 Other long term (current) drug therapy; Z88.0 Allergy status to penicillin; Z88.8 Allergy status to other drugs, medicaments and biological substances; Z91.018 Allergy to other foods

== ENCOUNTER 2018-03-10 14:18 | Emergency (ER) | payer OTHER ==
[~2018-03-10] VITALS: Ht 157.5 cm; Wt 48.5 kg
[~2018-03-10 14:18] MED LIST changes: +CYAN500T PO; -DIVA500T3 PO; -DPKSR/500 PO; +GABA800T PO; +MAGN400T6 PO; +ONDA4TAB10 SL
[2018-03-10 14:26] VITALS: Ht 157.5 cm; Wt 48.5 kg
[2018-03-10] MEDS ORDERED: SODIUM CHLORIDE 0.9% 1000ML 1,000 ML IV STA (15:09)
[2018-03-10] MEDS ORDERED: ONDANSETRON INJ 2 MG/ML 2 ML VIAL IV STA (15:16)
[2018-03-10 15:57] LABS: BASO % 0.9 %; BASO ABS # 0.05 K/uL (0-0.2); EOS % 1.1 %; EOS ABS # 0.06 K/uL (0-0.5); HEMATOCRIT 40.7 % (37-47); HEMOGLOBIN 14.3 g/dL (12.0-16.0); IG# 0.01 K/uL (0.00-0.02); LYMPH % 29.7 %; LYMPH ABS # 1.69 K/uL (1.2-3.4); MEAN CELL VOLUME 93.3 fL (80-100); MEAN CORPUSCULAR HEMOGLOBIN 32.8 pg (25-34); MEAN CORPUSCULAR HGB CONC 35.1 g/dl (32-36); MEAN PLATELET VOLUME 11.4 fL (7.4-10.4); MONO % 5.4 %; MONO ABS # 0.31 K/uL (0.11-0.59); NEUT % 62.7 %; NEUT ABS # 3.57 K/uL (1.4-6.5); PLATELET COUNT 197 K/uL (130-400); RED CELL DISTRIBUTION WIDTH CV 12.9 % (11.5-14.5); RED CELL DISTRIBUTION WIDTH SD 44.1 fL (36.4-46.3); WHITE BLOOD COUNT 5.69 K/uL (4.8-10.8)
--- NOTE | 2018-03-10 16:08 | EMERGENCY ROOM VISIT NOTE ---
History Report prepared by [place]: Shannan Ramsey Under the Supervision of: Dr. Shyam Hancock M.D. First contact with patient: 15:09 Chief Complaint: ILLNESS Stated Complaint: FLU,FEVER,DIARRHEA History of Present Illness The patient is a 38 year old female who presents to the Emergency Room with complaints of generalized illness beginning a couple days ago. The patient reports nausea, diarrhea, vomiting, chills, and abdominal pressure. She denies any sick contact. She also denies eating anything out of the ordinary. The patient reports taking an Aleve with no relief. She denies any recent antibiotic use. The patient has a history of two C-sections. Pt denies LOC, headache, fevers, diaphoresis, visual changes, neck pain, chest pain, breathing difficulties, back pain, melena, hematochezia, urinary symptoms, numbness, weakness, lymphadenopathy, rash, or other complaints. Source of History: patient Onset: a couple days ago Position: other (generalized) Quality: other (illness) Timing: constant Associated Symptoms: + chills, + nausea, + vomiting, + abdominal pain, + diarrhea, No fevers, No headache, No diaphoresis, No cough, No neck pain, No chest pain, No SOB, No back pain, No weakness, No numbness Review of Systems See HPI for pertinent positives and negatives. A total of ten systems were reviewed and were otherwise negative. Past Medical & Surgical Medical Problems: (1) Allergic reaction (2) Asthma Surgical Problems: (1) H/O section (2) S/P section Family History No pertinent family history Social History Smoking Status: Current Every Day Smoker Alcohol Use: occasionally Marital Status: Housing Status: lives with family Occupation Status: employed Current/Historical Medications Scheduled Cyanocobalamin (Vitamin B-12), Unknown Dose PO DAILY Gabapentin (Neurontin), 800 MG PO QAM Gabapentin (Neurontin), 1,600 MG PO QPM Magnesium Oxide (Mag-Ox), 400 MG PO QPM Naproxen (Aleve), 220 MG PO UD Scheduled PRN Sumatriptan Succinate (Imitrex), 500 MG PO PRN PRN for Migraine Allergies Coded Allergies: Mushroom (Unverified Allergy, Severe, ANAPHYLAXIS, 03/10/18) Penicillins (Unverified Allergy, Unknown, anaphylaxis, 03/10/18) Vitamin B12 (Unverified Allergy, Unknown, ., 03/10/18) Uncoded Allergies: VENISON (Allergy, Severe, ANAPHYLAXIS, 03/22/17) Physical Exam Vital Signs Date Time Temp Pulse Resp B/P (MAP) Pulse Ox O2 Delivery O2 Flow Rate FiO2 03/10/18 17:50 36.6 68 15 107/75 100 03/10/18 17:21 68 15 125/75 100 Room Air 03/10/18 16:20 72 18 134/76 98 Room Air 03/10/18 14:26 36.6 95 18 114/81 98 Room Air Physical Exam GENERAL: Awake, alert, uncomfortable-appearing, in no distress HENT: Normocephalic, atraumatic. Oropharynx unremarkable. EYES: Normal conjunctiva. Sclera non-icteric. NECK: Supple. No nuchal rigidity. FROM. No masses. RESPIRATORY: Clear to auscultation. No wheezes. No rales. Normal respiratory effort. CARDIAC: Normal rate. Normal rhythm. No murmurs. No rubs. Extremities warm and well perfused. Pulses equal. No JVD. GI: Mild epigastric tenderness. Soft, non-distended. No rebound or guarding. No masses. RECTAL: Deferred. MUSCULOSKELETAL: Atraumatic. Chest examination reveals no tenderness. The back is symmetrical on inspection without obvious abnormality. There is no CVA tenderness to palpation. No joint edema. LOWER EXTREMITIES: Calves are equal size bilaterally and non-tender. No edema. No discoloration. NEURO: Normal sensorium. No sensory or motor deficits noted. SKIN: No rash or jaundice noted. Medical Decision & Procedures Laboratory Results 03/10/18 15:30 Red Blood Count 4.36, Mean Corpuscular Volume 93.3, Mean Corpuscular Hemoglobin 32.8, Mean Corpuscular Hemoglobin Concent 35.1, Mean Platelet Volume 11.4, Neutrophils (%) (Auto) 62.7, Lymphocytes (%) (Auto) 29.7, Monocytes (%) (Auto) 5.4, Eosinophils (%) (Auto) 1.1, Basophils (%) (Auto) 0.9, Neutrophils # (Auto) 3.57, Lymphocytes # (Auto) 1.69, Monocytes # (Auto) 0.31, Eosinophils # (Auto) 0.06, Basophils # (Auto) 0.05 03/10/18 15:30 Test 03/10/18 15:25 03/10/18 15:30 Urine Color YELLOW Urine Appearance CLEAR (CLEAR) Urine pH 8.5 (4.5-7.5) Urine Specific [place] 1.012 (1.000-1.030) Urine Protein NEG (NEG) Urine Glucose (UA) NEG (NEG) Urine Ketones NEG (NEG) Urine Occult Blood NEG (NEG) Urine Nitrite NEG (NEG) Urine Bilirubin NEG (NEG) Urine Urobilinogen NEG (NEG) Urine Leukocyte Esterase NEG (NEG) White Blood Count 5.69 K/uL (4.8-10.8) Red Blood Count 4.36 M/uL (4.2-5.4) Hemoglobin 14.3 g/dL (12.0-16.0) Hematocrit 40.7 % (37-47) Mean Corpuscular Volume 93.3 fL (80-100) Mean Corpuscular Hemoglobin 32.8 pg (25-34) Mean Corpuscular Hemoglobin Concent 35.1 g/dl (32-36) Platelet Count 197 K/uL (130-400) Mean Platelet Volume 11.4 fL (7.4-10.4) Neutrophils (%) (Auto) 62.7 % Lymphocytes (%) (Auto) 29.7 % Monocytes (%) (Auto) 5.4 % Eosinophils (%) (Auto) 1.1 % Basophils (%) (Auto) 0.9 % Neutrophils # (Auto) 3.57 K/uL (1.4-6.5) Lymphocytes # (Auto) 1.69 K/uL (1.2-3.4) Monocytes # (Auto) 0.31 K/uL (0.11-0.59) Eosinophils # (Auto) 0.06 K/uL (0-0.5) Basophils # (Auto) 0.05 K/uL (0-0.2) RDW Standard Deviation 44.1 fL (36.4-46.3) RDW Coefficient of Variation 12.9 % (11.5-14.5) Immature Granulocyte % (Auto) 0.2 % Immature Granulocyte # (Auto) 0.01 K/uL (0.00-0.02) Anion Gap 5.0 mmol/L (3-11) Est Creatinine Clear Calc Drug Dose 77.4 ml/min Estimated GFR () 117.5 Estimated GFR (Non- 101.3 BUN/Creatinine Ratio 18.7 (10-20) Calcium Level 8.9 mg/dl (8.5-10.1) Total Bilirubin 0.5 mg/dl (0.2-1) Direct Bilirubin 0.1 mg/dl (0-0.2) Aspartate Amino Transf (AST/SGOT) 13 U/L (15-37) Alanine Aminotransferase (ALT/SGPT) 22 U/L (12-78) Alkaline Phosphatase 65 U/L (45-117) Total Protein 7.3 gm/dl (6.4-8.2) Albumin 4.5 gm/dl (3.4-5.0) Lipase 115 U/L (73-393) Human Chorionic Gonadotropin, Qual NEG (NEG) Laboratory results reviewed by me Medications Administered Medications (Trade) Dose Ordered Sig/Jack Route Start Time Stop Time Status Last Admin Dose Admin Sodium Chloride 1,000 ml @ 999 mls/hr Q1H1M STAT IV 03/10/18 15:09 03/10/18 16:09 DC 03/10/18 15:33 999 MLS/HR Ondansetron HCl (Zofran Inj) 4 mg NOW STAT IV 03/10/18 15:16 03/10/18 15:18 DC 03/10/18 15:33 4 MG Promethazine HCl (Phenergan 25MG Home Pack) 1 homepack UD ONCE PO 03/10/18 17:30 03/10/18 17:31 DC 03/10/18 17:23 1 HOMEPACK ED Course 1509: Ordered Sodium Chloride 1000 ml @ 999 mls/hr IV. 1515: The patient was evaluated in room C4. A complete history and physical exam was performed. 1516: Ordered Zofran Inj 4 mg IV. 1633: I updated the patient and she is feeling better. We will try a PO challenge of crackers and jamey chente. 1705: The patient was unable to provide a stool sample. 1724: On reassessment, the patient is resting comfortably. 1730: Ordered Promethazine HCl 1 homepack PO. 1735: I reevaluated the patient. Discussed results and discharge instructions: She verbalized understanding and agreement. The patient is ready for discharge. Medical Decision Prior records/ancillary studies reviewed. Triage Nursing notes reviewed and agree them. The patient's history was concerning for nausea, vomiting, diarrhea, and abdominal pain. Differential diagnosis: Etiologies such as gastroenteritis, food borne illness, infections, appendicitis , diverticulitis, inflammatory bowel disease, GI bleed, biliary pathology, as well as others were entertained. Physical examination findings: As above. No peritoneal findings. ER treatment provided: IV hydration 1 L NSS. Zofran 4 mg IV On reassessment the patient felt better. Patient was tolerating p.o. intake. Diagnostics interpretation by me: The labs revealed an unremarkable CBC and chemistry panel. Patient is not . Urinalysis unremarkable. The patient was unable to provide a stool specimen. Imaging studies: Deferred The patient presented with vomiting and diarrhea. She was hydrated given Zofran. Her symptoms resolved. She was unable to provide a stool specimen. She had no risk factors for C. difficile. This seems like a gastroenteritis. She had a benign abdomen. She has no white count or fever. She has had no bloody stool. If she worsens in any way she will be back. She was given a Phenergan home pack and told to follow-up with her PCP. She was given 2 days off of work as well. I gave my usual and customary discussion regarding this issue. By the evaluation outlined above other emergent etiologies such as those listed in the differential, as well as others, were deemed relatively unlikely. The patient was educated about the findings as listed above. All questions were answered and the patient was pleased with the treatment. Return instructions were outlined and the patient was discharged in stable condition. The patient was referred to her PCP for follow-up for a recheck of the current condition. Medication Reconcilliation Current Medication List: was personally reviewed by me Blood Pressure Screening Patient's blood pressure: Normal blood pressure Impression Primary Impression: Nausea Additional Impressions: Vomiting Diarrhea Scribe Attestation The scribe's documentation has been prepared under my direction and personally reviewed by me in its entirety. I confirm that the note above accurately reflects all work, treatment, procedures, and medical decision making performed by me. Departure Information Dispostion Home / Self-Care Referrals Estella Streeter D.O. (PCP) Forms HOME CARE DOCUMENTATION FORM, IMPORTANT VISIT INFORMATION, WORK / SCHOOL INSTRUCTIONS Patient Instructions [facility] Additional Instructions Imodium: This is available [id number]. Start out with two pills then take one after each loose bowel movement. You can take a maximum of 8 in one day. Only used as needed. Stop if you have bloody stools. Phenergan(promethazine) tablets 25mg: Take one every six hours as needed for nausea. Avoid alcohol, operating machinery or dangerous equipment, working on ladders or roofs, DRIVING, or situations where being under the influence may be dangerous. Ibuprofen(Motrin, Advil) may be used for fever or pain. Use 600mg every six hours as needed. Take with food. Avoid using more than 2400mg in a 24 hour period. Do not use 2400mg per day for more than three consecutive days without physician direction. Prolonged inappropriate use can lead to stomach upset or ulcers. (AND/OR) Acetaminophen(Tylenol) may be used for fever or pain. Use 1000mg every six hours as needed. Avoid using more than 4000mg in a 24 hour period. Rest and drink plenty of fluids as tolerated. Slow sips of water or sports drinks are recommended instead of large amounts all at once. Continue current medications. Once your stomach is settled start with a clear liquid diet (jello, soup broth, etc.) and then advance as tolerated. You should avoid full, heavy meals for about 24 hrs from the time your symptoms resolved. Return to the ER for persistent vomiting, fevers, abdominal pain, chest pains, difficulty breathing, black or bloody stools, worsening of your condition, or as needed. Follow up with your primary physician in 2-3 days for a recheck of your current condition Problem Qualifiers
[2018-03-10 16:16] LABS: ALBUMIN 4.5 gm/dl (3.4-5.0); CALCIUM 8.9 mg/dl (8.5-10.1); CREATININE 0.74 mg/dl (0.60-1.20); POTASSIUM 3.7 mmol/L (3.5-5.1)
[2018-03-10 16:19] LABS: TOTAL PROTEIN 7.3 gm/dl (6.4-8.2)
[2018-03-10] MEDS ORDERED: PHENERGAN 25MG HOMEPACK PO ONE (17:30)
[2018-03-10] MEDS ORDERED: NAPR1TAB9 PO (17:33)
[2018-03-10 17:50] VITALS: BP 107/75; PULSE 68; TEMP 36.6; O2SAT 100
== END 2018-03-10 17:56 | disposition home or self-care (01) ==
LOC: C.EDB 14:19 → C.EDC 17:56
DX: R11.2 Nausea with vomiting, unspecified (principal); R19.7 Diarrhea, unspecified; R68.83 Chills (without fever); R10.9 Unspecified abdominal pain; J45.909 Unspecified asthma, uncomplicated; F17.200 Nicotine dependence, unspecified, uncomplicated; Z79.899 Other long term (current) drug therapy; Z91.018 Allergy to other foods; Z88.0 Allergy status to penicillin; Z88.8 Allergy status to other drugs, medicaments and biological substances

== ENCOUNTER 2019-12-15 13:46 | Observation (INO) ==
[2019-12-15] MEDS ORDERED: SODIUM CHLORIDE 0.9% 1000ML 1,000 ML IV SCH (14:30)
[2019-12-15 14:41] LABS: Basophils # (auto) 0.06 K/uL (0-0.2); Eosinophils # (auto) 0.04 K/uL (0-0.5); Eosinophils % (auto) 0.7 %; Hematocrit (blood only) 40.4 % (37-47); Hemoglobin 14.1 g/dL (12.0-16.0); Immature Granulocytes # (auto) 0.01 K/uL (0.00-0.02); Immature Granulocytes % (auto) 0.2 %; Lymphocytes # (auto) 1.44 K/uL (1.2-3.4); Lymphocytes % (auto) 23.8 %; Mean Corpuscular Hemoglobin 31.3 pg (25-34); Mean Corpuscular Hgb Conc 34.9 g/dL (32-36); Mean Corpuscular Volume 89.6 fL (80-100); Mean Platelet Volume 11.3 fL (7.4-10.4); Monocytes # (auto) 0.59 K/uL (0.11-0.59); Monocytes % (auto) 9.7 %; Neutrophils # (auto) 3.92 K/uL (1.4-6.5); Neutrophils % (auto) 64.6 %; Platelet Count 195 K/uL (130-400); RDW Coefficient of Variation 13.8 % (11.5-14.5); RDW Standard Deviation 45.4 fL (36.4-46.3); Red Blood Count 4.51 M/uL (4.2-5.4); White Blood Count 6.06 K/uL (4.8-10.8)
[2019-12-15 14:59] LABS: Alanine Aminotransferase 10 U/L (12-78); Albumin Level 4.4 gm/dl (3.4-5.0); Aspartate Aminotransferase 6 U/L (15-37); Blood Urea Nitrogen 20 mg/dl (7-18); Calcium 9.1 mg/dl (8.5-10.1); Carbon Dioxide 24 mmol/L (21-32); Chloride 108 mmol/L (98-107); Est GFR (African American) 116.6; Est GFR (Non-African American) 100.6; Glucose 98 mg/dl (70-99); Potassium 3.6 mmol/L (3.5-5.1); Sodium 138 mmol/L (136-145)
--- NOTE | 2019-12-15 15:11 | CT Scan Report ---
CT SCAN OF THE BRAIN WITHOUT IV CONTRAST CLINICAL HISTORY: Visual changes. COMPARISON STUDY: CT of the brain dated 11/18/2019. TECHNIQUE: Unenhanced axial CT scan of the brain is performed from the vertex to the skull base. A d ose lowering technique was utilized adhering to the principles of ALARA. CT DOSE: 537.48 mGy.cm FINDINGS: Brain parenchyma: Asymmetric cerebellar atrophy is somewhat a previous. There is no hemorrhage, mass effect, or evidence of acute territorial ischemia by CT criteria. Fernandez-white matter differentiation i s preserved. No extra-axial fluid collection is seen. Ventricles, sulci, cisterns: Normal in configuration. Intracranial vasculature: The visualized intracranial vasculature at the skull base is normal in appe arance. Calvarium: Unremarkable. Sinuses and mastoids: There is evidence of previous paranasal sinus surgery. The visualized paranasal sinuses are clear. The mastoid air cells are well pneumatized. Orbits: The bony orbits are grossly intact. IMPRESSION: No acute intracranial abnormality. ACT 112: Negative or not required by law. Electronically signed by: Ebenezer Smith M.D. 12/15/2019 3:09 PM
[2019-12-15 15:14] LABS: Albumin Globulin Ratio 1.4 (0.9-2); Alkaline Phosphatase 59 U/L (45-117); Bilirubin,Total 0.6 mg/dl (0.2-1); Globulin 3.2 gm/dl (2.5-4.0); Total Protein 7.6 gm/dl (6.4-8.2)
--- NOTE | 2019-12-15 15:18 | XRay Report ---
SINGLE VIEW CHEST CLINICAL HISTORY: Generalized weakness. FINDINGS: An AP, portable, upright chest radiograph is compared to study dated 11/18/2019. The cardiome diastinal silhouette is unremarkable. The lungs and pleural spaces are clear. No pneumothorax is seen . The bony thorax is grossly intact. There is mild thoracolumbar scoliosis. IMPRESSION: No active disease in the chest. ACT 112: Negative or not required by law. Electronically signed by: Ebenezer Smith M.D. 12/15/2019 3:17 PM
--- NOTE | 2019-12-15 18:01 | Electrocardiogram Report ---
Test Reason : Blood Pressure : / mmHG Vent. Rate : 076 BPM Atrial Rate : 076 BPM P-R Int : 154 ms QRS Dur : 074 ms QT Int : 382 ms P-R-T Axes : 081 074 067 degrees QTc Int : 429 ms Normal sinus rhythm Biatrial enlargement Abnormal ECG When compared with ECG of 18-NOV-2019 14:25, No significant change was found Confirmed by Mal Chan ([id number] on 12/15/2019 6:01:01 PM Referred By: Antoni Spencer Confirmed By:Heriberto Chan
[2019-12-15 19:01] LABS: Appearance Urine Cloudy (Clear); Bacteria Urine Automated 2+ (Negative); Bilirubin Urine Negative (Negative); Blood Urine Negative (Negative); Color Urine Yellow; Epithelial Cell Urine Auto >30 /lpf (0-5); Glucose Urine UA Negative (Negative); Ketones Urine 1+ (Negative); Leukocyte Esterase Urine Trace (Negative); Nitrite Urine Negative (Negative); Protein Urine Negative (Negative); RBC Urine Automated 0-4 /hpf (0-4); Specific Gravity Urine 1.015 (1.000-1.030); Urobilinogen Urine Negative (Negative); pH Urine 6.5 (4.5-7.5)
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
[2019-12-15 19:22] LABS: Amphetamines+Metham, Urine Neg (Neg); Barbiturates, Urine Neg (Neg); Benzodiazepine, Urine Neg (Neg); Cocaine, Urine Neg (Neg); MDMA (Ecstacy), Urine Neg (Neg); Methadone, Urine Neg (Neg); Opiate, Urine Neg (Neg); Phencyclidine, Urine Neg (Neg)
[2019-12-15] MEDS ORDERED: ALUMINUM/MAGNESIUM SUSP 30 ML UDC PO PRN (20:19)
[2019-12-15] MEDS ORDERED: POLYETHYLENE (MIRALAX) 17 GM PACK PO PRN (20:19)
[2019-12-15] MEDS ORDERED: ONDANSETRON INJ 2 MG/ML 2 ML VIAL IV PRN (20:19)
[2019-12-15] MEDS ORDERED: IBUPROFEN 200 MG TAB PO PRN (20:19)
[2019-12-15] MEDS ORDERED: MAGNESIUM HYDROXIDE SUSP 30 ML UDC PO PRN (20:19)
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
--- NOTE | 2019-12-15 20:59 | Billing Data ---
Date of Service December 15, 2019 Coding Level of Care Code 51908 OBS Care - Level 3
[2019-12-16] MEDS: ACETAMINOPHEN 325 MG TAB PO PRN (07:43)
[2019-12-16] MEDS: SUMAtriptan succinate 100 MG TAB PO PRN ×2 (13:23→21:30)
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
[2019-12-16] MEDS ORDERED: IOVERSOL 100ml IV PRN (22:36)
--- NOTE | 2019-12-16 22:58 | CT Scan Report ---
CT SCAN OF THE CHEST, ABDOMEN, AND PELVIS WITH IV CONTRAST CLINICAL HISTORY: Paraneoplastic syndrome COMPARISON STUDY: Chest x-ray dated 12/15/2019. TECHNIQUE: Following the IV administration of 93 of Optiray 320, CT scan of the chest, abdomen, and p jay was performed from the thoracic inlet to the proximal femora. Images are reviewed in the axial, sagittal, and coronal planes. IV contrast was administered without complication. Oral contrast was u tilized. A dose lowering technique was utilized adhering to the principles of ALARA. CT DOSE: 422.48 mGycm FINDINGS: CHEST: Thyroid: Imaged portions of the thyroid gland are normal in size and attenuation. Thoracic aorta: The thoracic aorta is normal in caliber and demonstrates 4-vessel variant arch anatom y. No dissection is seen. Pulmonary vasculature: The pulmonary trunk is normal in caliber. There are no filling defects identif ied in the central pulmonary vessels to indicate pulmonary embolus. Note that this examination was no t protocoled for evaluation of the pulmonary arteries. Heart: The heart is normal in size and without pericardial effusion. Lungs and pleural spaces: Mild emphysematous change is noted. There is no airspace consolidation or p leural effusion. The trachea and central airways are clear. There our 3 mm and 4 mm pleural-based nod ules at the right lung base seen on images #220 and #227. A 3 mm left lower lobe pulmonary nodule is seen on image #213. There is a calcified granuloma at the left lung base. Mediastinum: There is no mediastinal lymphadenopathy. Maty: Clear. Axillae: There is no axillary lymphadenopathy. Bony thorax: No lytic or blastic lesions are identified. Soft tissues: The patient is cachectic. ABDOMEN AND PELVIS: Liver: The contrast-enhanced liver is normal in size, contour, and attenuation. There is no intra- or extrahepatic biliary ductal dilatation. The hepatic veins and portal veins are patent. Gallbladder: Contracted. Spleen: Normal in size and attenuation. Pancreas: Unremarkable. Adrenal glands: Unremarkable. Kidneys: The contrast enhanced kidneys are normal in size and without hydronephrosis. The kidneys enh ance symmetrically. There is an 11 mm cyst in the right upper pole. Additional scattered subcentimete r cortical hypodensities also likely represent cysts but are too small for definitive characterizatio n. Abdominal vasculature: The abdominal aorta is normal in course and caliber. Bowel: The stomach is distended with ingested material. There is mild colonic fecal retention. No bow el obstruction is seen. Enteric contrast reaches the cecum. The appendix is well-visualized and norm al. Peritoneum: There is no intraperitoneal free air or abdominal ascites. A naval piercing is noted. Lymphadenopathy: None. Pelvic viscera: The bladder is normal as visualized. The uterus is presumed surgically absent. A 3.6 cm minimally complex cyst is noted in the left adnexa, likely related to the left ovary. Skeletal structures: Small bone islands are noted in the right ischium and the left femoral head. No lytic or blastic lesions are seen. IMPRESSION: 1. Mild emphysema. 2. There is no airspace consolidation or pleural effusion. 3. There are at least 3 low suspicion pulmonary and pleural-based nodules measuring up to 4 mm. These can be followed as per the Fleischner criteria. See below. 4. There are no acute infectious or inflammatory findings in the abdomen or pelvis. 5. A 3.6 cm minimally complex cyst is identified in the left adnexa, likely related to the left ovary . Consider precautionary sonographic follow-up in 2-3 menstrual cycles to document resolution. 6. Additional findings as above. Please refer to below summary of Fleischner criteria recommendations for follow-up of incidental CT n odules (Karo Martinez, Guidelines for management of small pulmonary nodules detected on CT scans: A sta tement from the Fleischner Society, Radiology 237: [phone].) SOLID NODULES Solitary nodule size: <6 mm * low risk patients: no follow-up needed * high risk patients: optional CT at 12 months Solitary nodule size: 6-8 mm * low risk patients: follow-up at 6-12 months, then consider further follow-up at 18-24 months * high risk patients: initial follow-up CT at 6-12 months and then at 18-24 months if no change Solitary nodule size: >8 mm * either low or high risk patients - consider follow-up CT at 3 months, and/or CT-PET, and/or biopsy Multiple nodules size: <6 mm * low risk patients: no routine follow-up * high risk patients: optional CT at 12 months Multiple nodules size: 6-8 mm * low risk patients: follow-up at 3-6 months, then consider further follow-up at 18-24 months * high risk patients: follow-up at 3-6 months, then at 18-24 months if no change Multiple nodules size: >8 mm * low risk patients: follow-up at 3-6 months, then consider further follow-up at 18-24 months * high risk patients: follow-up at 3-6 months, then at 18-24 months if no change Note: newly detected indeterminate nodule in persons 35 years of age or older. * low risk patients: minimal or absent history of smoking and/or other known risk factors * high risk patients: history of smoking or of other known risk factors (e.g. first degree relative with lung cancer, or exposure to asbestos, radon, uranium) * if a nodule up to 8 mm is partly solid or is ground glass further follow-up is required after 24 m onths to exclude possible slow growing adenocarcinoma (EMI) SUBSOLID NODULES Solitary pure ground-glass nodule * nodule size <6 mm - no CT follow-up required * nodule size >=6 mm - follow-up CT at 6-12 months, then every 2 years until 5 years Solitary part-solid nodule * nodule size <6 mm - no CT follow-up required * nodule size >=6 mm - follow-up CT at 3-6 months. If unchanged, and solid component remains <6 mm, then annual follow-up for 5 years Multiple subsolid nodules * nodule size <6 mm - follow-up CT at 3-6 months, consider further follow-up at 2 and 4 years if sta ble * nodule size >=6 mm - follow-up CT at 3-6 months, subsequent management based on the most suspiciou s nodule(s) ACT 112: Negative or not required by law. Electronically signed by: Ebenezer Smith M.D. 12/16/2019 10:56 PM
[2019-12-17 07:50] VITALS: O2SAT 98
[2019-12-17] MEDS: SUMAtriptan succinate 100 MG TAB PO PRN (08:36)
[2019-12-17] MEDS ORDERED: VENLAFAXINE HCL XR 37.5 MG CAPXR PO SCH (09:00)
--- NOTE | 2019-12-17 11:40 | Electroencephalogram ---
EEG Procedure Note Date of Service December 17, 2019 Start / End Times Start Time: 9am End Time: 9:20am Referring Physician Janet Begum History 39 yo woman with blue spots in vision Home Medication List Home Medications Medication Instructions Recorded Confirmed Type ibuprofen 400 mg PO Q6H PRN 11/18/19 12/15/19 History citalopram 10 mg tablet 10 mg PO DAILY #30 tab 12/01/19 12/15/19 Rx divalproex 500 mg tablet,extended 1,000 mg PO HS #120 tab 12/01/19 12/15/19 Rx release 24 hr sumatriptan succinate 100 mg tablet 100 mg PO UD #10 tab 12/01/19 12/15/19 Rx Inpatient Medication List Acetaminophen (Tylenol) 650 mg PO Q4H PRN PRN Reason: pain/fever Stop: 01/14/20 20:18 Last Admin: 12/16/19 07:43 Dose: 650 mg Documented by: [id number] Ioversol (Optiray 320 100ml) 93 ml IV ONCE PRN PRN Reason: Interaction Checking Stop: 12/20/19 22:35 Last Admin: 12/16/19 22:36 Dose: 93 ml Documented by: [id number] Sumatriptan Succinate (Imitrex) 100 mg PO UD PRN PRN Reason: Migraine Headache Stop: 01/14/20 20:18 Last Admin: 12/17/19 08:36 Dose: 100 mg Documented by: [id number] Admin: 12/16/19 21:30 Dose: 100 mg Documented by: [id number] Admin: 12/16/19 13:23 Dose: 100 mg Documented by: [id number] Venlafaxine HCl (Effexor Extended Release) 37.5 mg PO QAM EFREN Stop: 01/16/20 08:59 Last Admin: 12/17/19 08:35 Dose: 37.5 mg Documented by: [id number] Discontinued Medications Sodium Chloride (Nss 1000ml) 1,000 mls @ 999 mls/hr IV .Q1H1M EFREN Stop: 12/15/19 15:30 Last Infusion: 12/15/19 15:45 Dose: 0 mls/hr Documented by: [id number] Admin: 12/15/19 14:47 Dose: 999 mls/hr Documented by: [id number] Description This is a 21 electrode EEG with a single channel dedicated to limited EKG. The electrodes were placed in accordance with the International 10-20 system. History: 39 yo woman with blue spots in vision Rx: celexa, depakote 1000mg qhs Start/Stop: 9am/9:20am Attending reading: Minnie Parsons EEG Description: EEG background: Background was low voltage alpha with overriding beta. A well formed 10-11 Hz posterior dominant rhythm was observed. The EEG is continuous. There is variability and reactivity present. Activation and reactivity: Photic stimulation performed without any abnormalities noted. Photic driving observed. Hyperventilation was not performed. Sleep: Patient was briefly drowsy but did not enter higher levels of sleep during recording. Epileptiform discharges: No epileptiform discharges were observed. Rhythmic and periodic patterns: None Seizures: None Impression: This was a normal awake and drowsy EEG. No seizures or epileptiform discharges were seen.
[2019-12-17] MEDS: ACETAMINOPHEN 325 MG TAB PO PRN (12:08)
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
[2019-12-17 15:32] VITALS: BP 130/84; PULSE 91; TEMP 97.9
[2019-12-19 16:40] LABS: Alpha-Tocopherol 6.3 mg/L (5.7-19.9); Arsenic Blood <3 mcg/L (<23); Collection Sample Venous; Copper, Serum 87 mcg/dL (70-175); Glutamic Acid Decarboxylase 65 <5 IU/mL (<5); Lead Blood <1 mcg/dL (<5); Mercury, blood <4 mcg/L (<=10); Transglutaminase, Tissue IgA 1 U/mL; Vitamin E Beta-Gam Tocopherol <1.0 mg/L (<=4.3)
[2019-12-19 17:41] LABS: Quantiferon Mitogen-NIL >10.00 IU/mL; Quantiferon NIL 0.03 IU/mL; Quantiferon TB Gold Plus NEGATIVE (NEGATIVE); Quantiferon TB2-NIL 0.01 IU/mL
== END 2019-12-17 17:29 | disposition home health service (06) ==
LOC: 3W 13:46 → ED 13:46 → SUATTDRO 19:21 → 3W 20:00
DX: Z79.899 Other long term (current) drug therapy; R41.89 Other symptoms and signs involving cognitive functions and awareness; G43.909 Migraine, unspecified, not intractable, without status migrainosus; G31.9 Degenerative disease of nervous system, unspecified; Z88.0 Allergy status to penicillin; Z91.018 Allergy to other foods; R91.1 Solitary pulmonary nodule; N83.202 Unspecified ovarian cyst, left side; F17.200 Nicotine dependence, unspecified, uncomplicated; H53.9 Unspecified visual disturbance; F32.9 Major depressive disorder, single episode, unspecified